=== PATIENT | female | born 1985 | race Two or more races ===

== ENCOUNTER 2017-04-16 16:48 | Emergency (ER) | payer MEDICAID ==
[~2017-04-16] VITALS: Ht 172.7 cm; Wt 128.8 kg
[2017-04-16 17:41] LABS: Basophils # (auto) 0 uL; Basophils % (auto) 0.8 % (0.0-2.0); Eosinophils # (auto) 0.2 uL; Eosinophils % (auto) 3.9 % (0.0-7.0); Hemoglobin 13.3 g/dL (12.2-16.2); Lymphocytes # (auto) 2.6 uL; Lymphocytes % (auto) 41.6 % (10.0-50.0); Mean Corpuscular Hemoglobin 29.5 pg (28.0-32.0); Mean Corpuscular Hgb Conc. 33.3 g/dL (32.0-36.0); Mean Corpuscular Volume 88.6 fL (80.0-100.0); Mean Platelet Volume 8.2 fL (6.9-10.8); Monocytes # (auto) 0.4 uL; Monocytes % (auto) 6.5 % (0.0-12.0); Neutrophils # (auto) 2.9 uL; Neutrophils % (auto) 47.2 % (37.0-80.0); Nucleated Red Blood Cells % 0.1 %; Platelet Count (auto) 259 10^3/uL (140-450); Red Cell Distribution Width 13.1 % (11.8-14.3); White Blood Cell 6.1 10^3/uL (4.4-10.8)
[2017-04-16 18:02] LABS: Albumin 3.7 g/dL (3.4-5.0); Alkaline Phosphatase 81 U/L (45-117); Anion Gap 6 (5-15); Aspartate Aminotransferase 13 U/L (15-37); BUN/Creatinine Ratio 15.3; Bilirubin, Total 0.3 mg/dL (0.2-1.0); Blood Urea Nitrogen 11 mg/dL (7-18); Calcium 8.3 mg/dL (8.5-10.1); Carbon Dioxide 25 mmol/L (21-32); Chloride 109 mmol/L (98-107); GFR African American 122 mL/min; GFR Non-African American 100 mL/min; Glucose 111 mg/dL (74-106); Potassium 4.6 mmol/L (3.5-5.1); Sodium 140 mmol/L (136-145); Total Protein 7.6 g/dL (6.4-8.2)
[2017-04-17 00:52] VITALS: BP 127/85
[2017-04-17] MEDS ORDERED: KETOROLAC TROMETH 60MG/2ML VIAL IM ONE (01:30)
== END 2017-04-17 02:02 | disposition home or self-care (01) ==
LOC: ER 16:53
DX: R59.1 Generalized enlarged lymph nodes (principal); F41.9 Anxiety disorder, unspecified; G51.0 Bell's palsy
CPT/HCPCS: 36415; 70450; 80053; 84484; 85025; 93005; 96372; 99285; J1885

== ENCOUNTER 2017-12-29 04:02 | Observation (INO) | payer SELFPAY ==
[2017-12-29 04:44] LABS: Urine Bacteria FEW /hpf (None Seen); Urine Blood Negative /uL (Negative); Urine Specific Gravity 1.021 (1.001-1.035); Urine WBC 8 /hpf (0 - 5)
[2017-12-29 04:55] LABS: Alcohol, Urine < 3.0 mg/dL (0-5); Amphetamine Screen, Urine NEGATIVE (NEGATIVE); Barbiturate Scree,Urine NEGATIVE (NEGATIVE); Benzodiazephine Screen, Urine NEGATIVE (NEGATIVE); Cannabinoid Screen, Urine NEGATIVE (NEGATIVE); Cocaine Screen, Urine NEGATIVE (NEGATIVE); Opiate Scree,Urine NEGATIVE (NEGATIVE); Phencyclidine Screen, Urine NEGATIVE (NEGATIVE)
== END 2017-12-29 06:10 | disposition home or self-care (01) | DRG 781 ==
LOC: LDRP 04:02
PROVIDERS: ADMIT Specialist; ATTEND Specialist
DX: O26.892 Other specified pregnancy related conditions, second trimester (principal); R10.30 Lower abdominal pain, unspecified; M54.9 Dorsalgia, unspecified; O30.002 Twin pregnancy, unspecified number of placenta and unspecified number of amniotic sacs, second trimester; Z3A.22 22 weeks gestation of pregnancy
CPT/HCPCS: 59025; 76815; 80307; 81001; 81002; G0378

== ENCOUNTER 2018-06-11 22:52 | Emergency (ER) | payer MEDICAID, OTHER ==
[~2018-06-11] VITALS: Ht 170.2 cm; Wt 129.3 kg
[2018-06-11 23:34] LABS: Urine Bacteria FEW /hpf (None Seen); Urine Blood Negative /uL (Negative); Urine Mucus FEW (None Seen); Urine Specific Gravity 1.027 (1.001-1.035); Urine WBC <1 /hpf (0 - 5)
[2018-06-11 23:36] LABS: Basophils # (auto) 0.1 uL; Eosinophils # (auto) 0.2 uL; Eosinophils % (auto) 3.6 % (0.0-7.0); Hematocrit 37.5 % (36.0-46.0); Hemoglobin 12.1 g/dL (12.2-16.2); Lymphocytes # (auto) 2.6 uL; Lymphocytes % (auto) 39.4 % (10.0-50.0); Mean Corpuscular Hemoglobin 25.1 pg (28.0-32.0); Mean Corpuscular Hgb Conc. 32.3 g/dL (32.0-36.0); Mean Corpuscular Volume 77.8 fL (80.0-100.0); Monocytes # (auto) 0.7 uL; Monocytes % (auto) 10.6 % (0.0-12.0); Neutrophils % (auto) 45.4 % (37.0-80.0); Platelet Count (auto) 266 10^3/uL (140-450); Red Blood Cells 4.81 10^6/uL (4.0-5.20); Red Cell Distribution Width 15.9 % (11.8-14.3); White Blood Cell 6.5 10^3/uL (4.4-10.8)
[2018-06-11 23:47] VITALS: BP 148/90
[2018-06-11 23:53] LABS: Albumin 3.5 g/dL (3.4-5.0); Calcium 8.6 mg/dL (8.5-10.1); Potassium 4.3 mmol/L (3.5-5.1)
[2018-06-11 23:56] LABS: BUN/Creatinine Ratio 17.1
[2018-06-11 23:58] LABS: Bilirubin, Total 0.2 mg/dL (0.2-1.0); Total Protein 7.6 g/dL (6.4-8.2)
[2018-06-12] MEDS ORDERED: HYDROcodone-ACET 5/325MG TAB PO ONE
[2018-06-12] MEDS ORDERED: cefTRIAXone 1GM/50ML D5W 50 ML IV ONE (01:00)
== END 2018-06-12 02:41 | disposition home or self-care (01) ==
LOC: EDBD 22:52 → ER 22:58
DX: J32.9 Chronic sinusitis, unspecified (principal)
CPT/HCPCS: 36415; 70450; 80053; 81001; 85025; 96365; 99284; J0696

== ENCOUNTER 2018-09-10 10:05 | Emergency (ER) | payer OTHER ==
[~2018-09-10] VITALS: Ht 170.2 cm; Wt 138.3 kg
[2018-09-10 10:10] VITALS: BP 126/81
== END 2018-09-10 13:03 | disposition home or self-care (01) ==
LOC: ER 10:05
DX: R05 Cough (principal); E66.01 Morbid (severe) obesity due to excess calories; Z68.42 Body mass index [BMI] 45.0-49.9, adult
CPT/HCPCS: 71046

== ENCOUNTER 2019-09-13 19:05 | Emergency (ER) | payer MEDICAID ==
[~2019-09-13] VITALS: Ht 170.2 cm; Wt 138.3 kg
[~2019-09-13 19:05] MED LIST: CALC600T10 PO; MULT-574 PO
[2019-09-13 21:24] LABS: Basophils # (auto) 0 10 ^3/uL (0-0.2); Basophils % (auto) 0.6 % (0.0-2.0); Eosinophils # (auto) 0.2 10 ^3/uL (0-0.8); Eosinophils % (auto) 2.4 % (0.0-7.0); Hematocrit 39.3 % (36.0-46.0); Hemoglobin 13.1 g/dL (12.2-16.2); Lymphocytes # (auto) 2.6 10 ^3/uL (0.4-5.4); Lymphocytes % (auto) 32.3 % (10.0-50.0); Mean Corpuscular Hemoglobin 28.9 pg (28.0-32.0); Mean Corpuscular Hgb Conc. 33.3 g/dL (32.0-36.0); Mean Corpuscular Volume 86.9 fL (80.0-100.0); Monocytes # (auto) 0.7 10 ^3/uL (0-1.3); Monocytes % (auto) 8.4 % (0.0-12.0); Neutrophils # (auto) 4.5 10 ^3/uL (1.6-8.6); Neutrophils % (auto) 56.3 % (37.0-80.0); Nucleated Red Blood Cells % 0.1 %; Platelet Count (auto) 269 10^3/uL (140-450); Red Blood Cells 4.52 10^6/uL (4.0-5.20); Red Cell Distribution Width 13.7 % (11.8-14.3); White Blood Cell 7.9 10^3/uL (4.4-10.8)
[2019-09-13 21:25] LABS: Alanine Aminotransferase 22 U/L (13-56); Albumin 3.3 g/dL (3.4-5.0); Anion Gap 4 (5-15); Aspartate Aminotransferase 13 U/L (15-37); BUN/Creatinine Ratio 13.8; Blood Urea Nitrogen 12 mg/dL (7-18); Calcium 8.8 mg/dL (8.5-10.1); Carbon Dioxide 26 mmol/L (21-32); Chloride 112 mmol/L (98-107); GFR African American 96 mL/min; GFR Non-African American 79 mL/min; Glucose 84 mg/dL (74-106); Potassium 4.1 mmol/L (3.5-5.1); Sodium 142 mmol/L (136-145)
[2019-09-13 21:30] LABS: Alkaline Phosphatase 66 U/L (45-117); Bilirubin, Total 0.2 mg/dL (0.2-1.0); Total Protein 7.7 g/dL (6.4-8.2)
[2019-09-13 22:37] VITALS: BP 129/96
== END 2019-09-13 22:41 | disposition home or self-care (01) ==
LOC: ER 19:07
DX: R07.89 Other chest pain (principal)
CPT/HCPCS: 36415; 71046; 80053; 84484; 85025; 85379; 93005

== ENCOUNTER 2021-12-26 21:00 | Emergency (ER) | payer MEDICAID ==
[~2021-12-26] VITALS: Ht 170.2 cm; Wt 147.4 kg
[~2021-12-26 21:00] MED LIST changes: -MULT-574 PO; +MULT1TAB34 PO
[2021-12-27 02:02] VITALS: BP 125/81
[2021-12-27] MEDS ORDERED: ACYC1CAP23 PO (02:17)
== END 2021-12-27 02:28 | disposition home or self-care (01) ==
LOC: ER 21:00
DX: R07.89 Other chest pain (principal); R11.2 Nausea with vomiting, unspecified; T38.0X5A Adverse effect of glucocorticoids and synthetic analogues, initial encounter; Z79.899 Other long term (current) drug therapy; Y92.89 Other specified places as the place of occurrence of the external cause
CPT/HCPCS: 93005

== ENCOUNTER 2022-11-19 15:51 | Inpatient (IN) | payer MEDICAID ==
[2022-11-18] MEDS: SODIUM CHLORIDE 0.9% 1,000 ML IV SCH (23:56)
[~2022-11-19] VITALS: Ht 167.6 cm; Wt 159.0 kg
[~2022-11-19 15:51] MED LIST changes: +ACYC1CAP23 PO
[2022-11-19] MEDS ORDERED: SODIUM CHLORIDE 0.9% 1,000 ML IVB ONE (16:15)
[2022-11-19] MEDS ORDERED: MORPHINE SULFATE 4 MG/ML SYR/VIAL IV ONE (16:15)
[2022-11-19] MEDS ORDERED: PANTOPRAZOLE 40 MG/10 ML VIAL INJ IV ONE (16:15)
[2022-11-19] MEDS ORDERED: ONDANSETRON HCL 4 MG/2 ML VIAL IV ONE (16:15)
[2022-11-19 16:37] LABS: Basophils # (auto) 0.1 10 ^3/uL (0-0.2); Basophils % (auto) 0.5 % (0.0-2.0); Eosinophils # (auto) 0.2 10 ^3/uL (0-0.8); Eosinophils % (auto) 2.2 % (0.0-7.0); Hematocrit 41.1 % (36.0-46.0); Hemoglobin 13.5 g/dL (12.2-16.2); Lymphocytes # (auto) 2.7 10 ^3/uL (0.4-5.4); Lymphocytes % (auto) 28.2 % (10.0-50.0); Mean Corpuscular Hemoglobin 28.4 pg (28.0-32.0); Mean Corpuscular Hgb Conc. 32.8 g/dL (32.0-36.0); Mean Corpuscular Volume 86.4 fL (80.0-100.0); Monocytes # (auto) 0.7 10 ^3/uL (0-1.3); Monocytes % (auto) 7.1 % (0.0-12.0); Neutrophils # (auto) 5.8 10 ^3/uL (1.6-8.6); Nucleated Red Blood Cells % 0.4 %; Red Blood Cells 4.75 10^6/uL (4.0-5.20); Red Cell Distribution Width 13.4 % (11.8-14.3); White Blood Cell 9.4 10^3/uL (4.4-10.8)
[2022-11-19 16:55] LABS: Albumin 3.7 g/dL (3.4-5.0); Calcium 8.7 mg/dL (8.5-10.1); INR 0.93 (0.9-1.15); Partial Thromboplastin Time 24.4 sec (24.6-33.4); Potassium 4.2 mmol/L (3.5-5.1)
[2022-11-19 16:58] LABS: BUN/Creatinine Ratio 11.8 (10.0-20.0); Bilirubin, Total 0.3 mg/dL (0.2-1.0); Total Protein 7.7 g/dL (6.4-8.2)
[2022-11-19] MEDS ORDERED: DOCUSATE SOD 100 MG CAP PO PRN (19:15)
[2022-11-19 21:41] LABS: Urine Bacteria None Seen /hpf (None Seen)
[2022-11-19 21:58] LABS: Hematocrit 38.7 % (36.0-46.0); Hemoglobin 12.7 g/dL (12.2-16.2)
[2022-11-19] MEDS: PANTOPRAZOLE 40 MG/10 ML VIAL INJ IV SCH (22:00)
[2022-11-19 22:03] LABS: Urine Blood Negative /uL (Negative)
[2022-11-19 22:04] LABS: Urine Amorphous Sediment Few /hpf
[2022-11-19 22:05] LABS: Urine Mucus FEW (None Seen)
[2022-11-19 23:58] VITALS: BP 124/74
[2022-11-20] VITALS (7 sets, daily range): BP systolic 108–135; BP diastolic 61–94
[2022-11-20] MEDS: MORPHINE SULFATE INJ 2 MG/ml SYRG IV PRN ×4 (00:25→20:25)
[2022-11-20] MEDS: ONDANSETRON HCL 4 MG/2 ML VIAL IV PRN ×3 (00:25→20:26)
[2022-11-20] MEDS: SODIUM CHLORIDE 0.9% 1,000 ML IV SCH ×3 (03:35→20:56)
[2022-11-20 06:00] LABS: Basophils # (auto) 0 10 ^3/uL (0-0.2); Basophils % (auto) 0.4 % (0.0-2.0); Eosinophils # (auto) 0.1 10 ^3/uL (0-0.8); Eosinophils % (auto) 2.4 % (0.0-7.0); Hematocrit 36.1 % (36.0-46.0); Hemoglobin 12.2 g/dL (12.2-16.2); Lymphocytes # (auto) 2.2 10 ^3/uL (0.4-5.4); Lymphocytes % (auto) 37.5 % (10.0-50.0); Mean Corpuscular Hemoglobin 29.2 pg (28.0-32.0); Mean Corpuscular Hgb Conc. 33.7 g/dL (32.0-36.0); Mean Corpuscular Volume 86.9 fL (80.0-100.0); Monocytes # (auto) 0.5 10 ^3/uL (0-1.3); Monocytes % (auto) 7.6 % (0.0-12.0); Neutrophils # (auto) 3.1 10 ^3/uL (1.6-8.6); Neutrophils % (auto) 52.1 % (37.0-80.0); Nucleated Red Blood Cells % 0.1 %; Red Blood Cells 4.15 10^6/uL (4.0-5.20); Red Cell Distribution Width 13.5 % (11.8-14.3)
[2022-11-20 06:16] LABS: Calcium 7.8 mg/dL (8.5-10.1); Potassium 3.8 mmol/L (3.5-5.1)
[2022-11-20 06:22] LABS: Albumin 3.1 g/dL (3.4-5.0); BUN/Creatinine Ratio 11.5 (10.0-20.0); Bilirubin, Total 0.6 mg/dL (0.2-1.0); Total Protein 6.2 g/dL (6.4-8.2)
[2022-11-20] MEDS: cefTRIAXone 1GM/50ML D5W 50 ML IV SCH (10:23)
[2022-11-20] MEDS: PANTOPRAZOLE 40 MG/10 ML VIAL INJ IV SCH ×2 (10:24→21:40)
[2022-11-20 10:46] LABS: Hematocrit 36.9 % (36.0-46.0); Hemoglobin 12.3 g/dL (12.2-16.2)
[2022-11-20 22:15] LABS: Hematocrit 37.8 % (36.0-46.0); Hemoglobin 12.5 g/dL (12.2-16.2)
[2022-11-21] MEDS: SODIUM CHLORIDE 0.9% 1,000 ML IV SCH (04:40)
[2022-11-21 05:00] VITALS: BP 114/71
[2022-11-21 05:00] LABS: Basophils # (auto) 0 10 ^3/uL (0-0.2); Basophils % (auto) 0.4 % (0.0-2.0); Eosinophils # (auto) 0.2 10 ^3/uL (0-0.8); Eosinophils % (auto) 4.1 % (0.0-7.0); Hematocrit 36.6 % (36.0-46.0); Hemoglobin 12.3 g/dL (12.2-16.2); Lymphocytes # (auto) 1.7 10 ^3/uL (0.4-5.4); Lymphocytes % (auto) 32.6 % (10.0-50.0); Mean Corpuscular Hgb Conc. 33.6 g/dL (32.0-36.0); Mean Corpuscular Volume 86.4 fL (80.0-100.0); Monocytes # (auto) 0.4 10 ^3/uL (0-1.3); Monocytes % (auto) 7.3 % (0.0-12.0); Neutrophils % (auto) 55.6 % (37.0-80.0); Nucleated Red Blood Cells % 0.1 %; Red Blood Cells 4.23 10^6/uL (4.0-5.20); Red Cell Distribution Width 13.6 % (11.8-14.3); White Blood Cell 5.3 10^3/uL (4.4-10.8)
[2022-11-21 05:22] LABS: Calcium 7.8 mg/dL (8.5-10.1); Potassium 3.7 mmol/L (3.5-5.1)
[2022-11-21 05:26] LABS: BUN/Creatinine Ratio 12.2 (10.0-20.0); Bilirubin, Total 0.5 mg/dL (0.2-1.0); Total Protein 6.4 g/dL (6.4-8.2)
[2022-11-21 08:58] VITALS: BP_SYST 122; BP_SYST 137; BP_DIAS 73; BP_DIAS 74
[2022-11-21] MEDS: cefTRIAXone 1GM/50ML D5W 50 ML IV SCH (09:00)
[2022-11-21] MEDS: PANTOPRAZOLE 40 MG/10 ML VIAL INJ IV SCH (10:00)
== END 2022-11-21 10:40 | disposition left against medical advice (07) ==
LOC: ER 15:51 → OVERFLOW 19:10 → WEST WING 23:33
PROVIDERS: ADMIT Nurse Practitioner Family; ATTEND Nurse Practitioner Family
DX: K80.20 Calculus of gallbladder without cholecystitis without obstruction (principal); K76.0 Fatty (change of) liver, not elsewhere classified; K92.2 Gastrointestinal hemorrhage, unspecified; R16.0 Hepatomegaly, not elsewhere classified; Z68.43 Body mass index [BMI] 50.0-59.9, adult; Z53.29 Procedure and treatment not carried out because of patient's decision for other reasons; E66.01 Morbid (severe) obesity due to excess calories; K20.90 Esophagitis, unspecified without bleeding; Z79.899 Other long term (current) drug therapy; Z80.3 Family history of malignant neoplasm of breast; Z82.1 Family history of blindness and visual loss; Z82.49 Family history of ischemic heart disease and other diseases of the circulatory system
CPT/HCPCS: 36415; 74176; 76705; 80053; 81001; 81025; 82150; 83690; 85014; 85018; 85025; 85610; 85730; 86850; 86900; 86901; 96361; 96374; 96375; C9113; G0378; J0696; J2405

== ENCOUNTER 2024-12-10 09:59 | Emergency (ER) | payer MEDICAID ==
[~2024-12-10] VITALS: Ht 167.6 cm; Wt 149.1 kg
[~2024-12-10 09:59] MED LIST changes: -ACYC1CAP23 PO; +ACYC200C22 PO
[2024-12-10 10:25] VITALS: BP 100/67; PULSE 78; RESP 17; TEMP 97.8; O2SAT 99
--- NOTE | 2024-12-10 11:26 | ED.PDOC ---
Musculoskeletal HPI Comments A 39 year old female with no past medical history presents to the emergency department with a chief complaint of LT great toe pain onset today (12/10/24). Patient states she was walking to the restroom this morning when she tripped, hit her LT great toe, cracked toenail. Patient went to see PCP this morning, was sent to ED for XR. No other symptoms or modifying factors present at this time. Still able to bear weight Denies previous surgeries to the toe Denies redness or swelling around the toe Denies fever chills night sweats nausea vomiting Chief Complaint: Lower Extremity Time Seen by MD: 11:15 Primary Care Provider: TRUNG Reviewed Notes: Nurses Notes, Medications, Allergies Allergies: Coded Allergies: NO KNOWN ALLERGIES (Unverified , 03/29/15) Home Meds Active Scripts Naproxen (Naproxen) 500 Mg Tab, 500 MG PO BIDPC PRN for 10 Days, #20 TAB 0 Refills Prov:LUIS TALAVERA COUNTER PROFESSIONAL 12/10/24 Acyclovir (Acyclovir) 200 Mg Cap, 400 MG PO TID for 10 Days, #60 TAB Prov:VIVIAN RUIZ DO 12/27/21 Reported Medications Calcium Carbonate-Vitamin D (Calcium + D) 600 Mg Tab, 600 MG PO DAILY, TAB 12/01/18 Multiple Vitamins W/ Minerals (Centrum Silver Ultra Wome) Silver Tab, 1 TAB PO DAILY, TAB 12/01/18 Information Source: Patient Mode of Arrival: Ambulatory Location: Left Extremity Location: Great Toe Timing: Hours Prehospital treatment: None Severity: Moderate Able to Move Extremity: Yes Bear Weight: Limited Pain: Moderate Mechanism: Blunt Trauma Circumstances: Tripped Onset of Symptoms: After Trauma Symptoms: Pain DVT Risk Factors: NONE Last Tetanus: UTD Associated signs and symptoms: Other Past Medical History PAST MEDICAL HISTORY: Gallstones Surgical History: COMMUNITY WORKER History: No Pertinent COMMUNITY WORKER History Family History Family History: Family hx of Cancer Social History Smoker: Non-Smoker Alcohol: Occasionally Drugs: Denies Drug Use Lives In: Home All Other Systems: Reviewed and Negative (as per HPI) Physical Exam General Appearance: No Apparent Distress, Normal HEENT: Normal ENT Inspection, Pharynx Normal, TMs Normal Neck: Full Range of Motion, Non-Tender, Normal, Normal Inspection Respiratory: Chest Non-Tender, Lungs Clear, No Accessory Muscle Use, No Respiratory Distress, Normal Breath Sounds Cardiovascular: No Murmur, No Gallop, Regular Rate/Rhythm Breast Exam: Deferred Gastrointestinal: No Organomegaly, Non Tender, No Pulsatile Mass, Normal Bowel Sounds, Soft Genitalia: Deferred Pelvic: Deferred Rectal: Deferred Extremities: No calf tenderness, Normal capillary refill, No pedal edema Musculoskeletal : Location: Left Extremity Location: Great Toe Apperance: Normal Neurologic: Alert, rn long term care II-XII nml as Tested, No Motor Deficits, Normal Affect, Normal Mood, No Sensory Deficits Cerebellar Function: Normal Reflexes: Normal Skin: Dry, Normal Color, Warm Lymphatic: No Adenopathy Was a procedure done? Was a procedure done?: No Differential Diagnosis EXT Differential Diagnosis: Fracture, Sprain, Dislocation X-Ray, Labs, Meds, VS Vital Signs Date Time Temp Pulse Resp B/P (MAP) Pulse Ox O2 Delivery O2 Flow Rate FiO2 12/10/24 10:25 78 17 99 Room Air 12/10/24 10:25 97.8 78 17 100/67 (78) 99 97.8 12/10/24 10:22 97.9 78 17 100/67 (78) 99 97.9 DIAGNOSTIC IMAGING Diagnostic Imaging Report : [id number] Signed PATIENT: JED ORDOÑEZ ACCT: [id number] UNIT: [id number] : 1985 LOC: ER ROOM / BED: / AGE / SEX: 39 / F ADM STATUS: REG ER SERVICE 1121 ORDERING PHYSICIAN: LUIS TALAVERA NP PROCEDURE(s): LFOOT - L FOOT 3 VIEW XRAY REASON: r/o fracture to the great toe ORDER NUMBER(s): [id number], ACCESSION NUMBER(s): [id number] CLINICAL INDICATION: Trauma; r/o fracture to the great toe TECHNIQUE: 3 radiographic views of the left foot were obtained. Comparison: None FINDINGS/IMPRESSION: There is no evidence of acute fracture or dislocation. The visualized joint space is well maintained. The alignment is anatomical. There is no radiopaque foreign body. ATED BY: FINESSE LAY MD DICTATED DATE/TIME: 12/10/24 1217 SIGNED BY: FINESSE LAY MD SIGNED DATE/TIME: 12/10/24 1217 CC: X-Ray, Labs, Meds, VS Comment A 39 year old female with no past medical history presents to the emergency department with a chief complaint of LT great toe pain onset today (12/10/24). Patient arrives alert and oriented, ABC's intact, afebrile, vital signs stable, saturating well in room air Diagnostic imaging ordered by me and results interpreted by radiology : XY L FOOT 3 VIEW On reevaluation, patient had symptomatic improvement. Patient is stable for discharge at this time. External notes reviewed. Test results and diagnostic imaging interpreted. All diagnostic findings, discharge care, education and instructions provided Follow-up with PCP in 2 to 3 days Patient verbalized understanding and agreed to treatment plan Vital signs stable, afebrile, no acute distress noted Patient ambulatory with strong steady gait Advised to return precautions for any new or worsening symptoms, return to ER immediately for re-evaluation Patient is aware that the purpose of this visit was for an acute medical emergency requiring emergent stabilization. Chronic conditions, including malignancies have not been ruled out. Patient is instructed to follow up with PCP as directed and discharge instructions for continued care and workup. If unable to arrange follow-up, patient is to return to the emergency department for reassessment. Patient (parent or legal guardian if applicable) was given verbal and written discharge instructions and acknowledges understanding. Additional MDM Review of External, Non-ED records: External records reviewed. Discussion with independent historian (EMS, family) history obtained from the patient/parents (if applicable) at bedside Chronic conditions affecting care: None Social determinants of health affecting care: occasional ETOH Consideration of admission (observation or admission): I considered escalation of care to admission for this patient, however given the reassuring workup, the patient is safe for outpatient management. Time of 1ST Reevaluation: 11:45 Reevaluation 1ST: Improved Patient Education/Counseling: Diagnosis, Treatment, Need For Follow Up Family Education/Counseling: No Family Present Departure 1 Departure Time of Disposition: 12:35 Impression: Primary Impression: Nail avulsion of toe Qualified Codes: S91.209A - Unspecified open wound of unspecified toe(s) with damage to nail, initial encounter Disposition: HOME / SELF CARE / HOMELESS Condition: Stable e-Prescriptions Naproxen (Naproxen) 500 Mg Tab 500 MG PO BIDPC PRN for 10 Days, #20 TAB 0 Refills Prov: LUIS TALAVERA NP 12/10/24 Critical Care Note Critical Care Time?: No Stability Stability form required: No Heart Score Heart Score: Heart Score Response (Comments) Value History N/A 0 EKG N/A 0 Age N/A 0 Risk Factors N/A 0 Troponin N/A 0 Total 0 I personally scribed for LUIS TALAVERA NP ([email or web address]) on 12/10/24 at 11:26. Electronically submitted by Sonal Pollard ([email or web address]). I personally scribed for LUIS TALAVERA NP ([email or web address]) on 12/10/24 at 11:36. Electronically submitted by Sonal Pollard ([email or web address]). I personally scribed for LUIS TALAVERA NP ([email or web address]) on 12/10/24 at 12:25. Electronically submitted by Sonal Pollard ([email or web address]). LUIS TALAVERA NP Dec 10, 2024 11:26
--- NOTE | 2024-12-10 12:19 | DVH ---
CLINICAL INDICATION: Trauma; r/o fracture to the great toe TECHNIQUE: 3 radiographic views of the left foot were obtained. Comparison: None FINDINGS/IMPRESSION: There is no evidence of acute fracture or dislocation. The visualized joint space is well maintained. The alignment is anatomical. There is no radiopaque foreign body.
[2024-12-10] MEDS ORDERED: NAPR-746 PO (12:37)
== END 2024-12-10 13:10 | disposition home or self-care (01) ==
LOC: ER 09:59
DX: S91.202A Unspecified open wound of left great toe with damage to nail, initial encounter (principal); W01.0XXA Fall on same level from slipping, tripping and stumbling without subsequent striking against object, initial encounter; Y93.01 Activity, walking, marching and hiking; Y92.89 Other specified places as the place of occurrence of the external cause; Y99.8 Other external cause status
CPT/HCPCS: 73630

== ENCOUNTER 2025-05-09 20:00 | Emergency (ER) | payer MEDICAID ==
[~2025-05-09] VITALS: Ht 170.2 cm; Wt 148.6 kg
[~2025-05-09 20:00] MED LIST changes: +NAPR-746 PO
[2025-05-09 21:02] LABS: Hematocrit 38.8 % (36.0-46.0); Hemoglobin 12.9 g/dL (12.2-16.2); Mean Corpuscular Hemoglobin 29.2 pg (28.0-32.0); Mean Corpuscular Volume 87.4 fL (80.0-100.0); Nucleated Red Blood Cells % 0.0 %
[2025-05-09 21:08] LABS: Alanine Aminotransferase 10 U/L (7-40); Albumin 4.4 g/dL (3.2-4.8); Alkaline Phosphatase 66 U/L (46-116); Anion Gap 9 (5-15); BUN/Creatinine Ratio 13.3 (10.0-20.0); Bilirubin, Total 0.3 mg/dL (0.2-1.0); Blood Urea Nitrogen 11 mg/dL (9-23); Calcium 9.2 mg/dL (8.7-10.4); Carbon Dioxide 28 mmol/L (20-31); Lipase 51 U/L (12-53); Potassium 4.2 mmol/L (3.5-5.1); Sodium 144 mmol/L (136-145); Total Protein 7.2 g/dL (5.7-8.2)
[2025-05-09 21:22] LABS: Chloride 107 mmol/L (98-107); Glucose 117 mg/dL (74-106)
--- NOTE | 2025-05-09 21:32 | DVH ---
Exam: CT CT AB PEL WO CON-NO ORAL OR IV History: upper abd pain Comparison Study: CT CT AB PEL WO CON-NO ORAL OR IV on DOS: 11/20/22 TECHNIQUE: Multidetector CT of the abdomen and pelvis without IV contrast. Axial, coronal and sagitta l multiplanar reformats were obtained from the axial data set by the technologist. Radiation Dose Information: CT Dose: CTDI volume is 27.62 mGy. Dose-length product is 1573.89 mGy*cm FINDINGS: The lung bases are clear. Partially visualized heart is unremarkable. Mild hepatomegaly. Otherwise, liver, spleen, pancreas and adrenal glands are unremarkable. Moderate distention of the gallbladder sludge and multiple gallstones. 3.1 x 3.9 cm large calculus over the p roximal gallbladder. No evidence of gallbladder wall thickening or pericholecystic edema. Kidneys, ureters and urinary bladder are unremarkable. Uterus and adnexa are unremarkable. Stomach is unremarkable. Small bowel loops are unremarkable. Appendix is unremarkable. Small to mode rate amount of fecal material within the colon. No evidence of intraperitoneal free air or free fluid. No evidence of aortic aneurysm. No significant lymphadenopathy. Tiny fat containing umbilical hernia. Mild nonspecific midline lower back Subcutaneous fat edema. No evidence of acute osseous abnormalities. Focus of air within the anterior spinal canal at the level o f L5 which is most likely from the vacuum disc phenomenon. Posterior disc osteophyte complex causing severe spinal canal stenosis at L4-L5. IMPRESSION: Sludge and gallstones within the moderately distended gallbladder with no CT evidence of acute cholec ystitis. Right upper quadrant ultrasound may be considered for further evaluation. Severe spinal canal stenosis at L4-L5.
[2025-05-09 23:15] LABS: Urine Protein, UAD Negative (Negative)
[2025-05-10] MEDS: LIDOCAINE VISCOUS 2% 15ML UD PO ONE (00:46)
[2025-05-10] MEDS: PANTOPRAZOLE 40 MG TAB PO ONE (00:46)
[2025-05-10] MEDS: SUCRALFATE 1 GM TAB PO ONE (00:46)
[2025-05-10 01:08] VITALS: BP 110/74; TEMP 97.6
[2025-05-10 01:10] VITALS: PULSE 72; RESP 12; O2SAT 96
--- NOTE | 2025-05-10 11:26 | ED.PDOC ---
GI ASSESSMENT HPI Comments 40-year-old female who presents to the ED for chief complaint of abdominal pain. Patient states that she has been having epigastric abdominal pain for the past four days. Patient states that she went to PCP few days ago and states she was told she has acid reflux and prescription of omeprazole an associated and Tylenol for pain. Patient states her symptoms worsened today and states she went to urgent care. Patient states that she had blood work done but states she did not receive her results. Patient states that she continued to have pain and was referred to the ED for evaluation. Patient in the ED states she had having l left upper quadrant pain. constant with the associated exacerbating factor of pain after eating and no alleviating factors. Patient has a associated nausea but otherwise denies vomiting diarrhea fever cough chills or any other symptoms. Patient otherwise states that she has been having loss of appetite due to the pain. Patient in the ED has not noted blood pressure 152/104 with otherwise stable vitals. Patient otherwise denies any other symptoms. Past Medical history: Denies Past Surgical history: Medications: Omeprazole, Tylenol Social history: denies EOTH, denies tobacco use, denies drug use Allergies: NKDA HPI: Poor Historian. Abdominal pain no vomiting no diarrhea. Patient has been taking omeprazole and Tylenol. Past Medical History: Past Surgical History: REVIEW OF SYSTEMS: CONSTITUTIONAL: Denies acute: fever, diaphoresis, chills, generalized weakness. HEAD: Denies acute: headache, photophobia Eyes: Denies acute: Double vision, vision loss, eye pain, eye discharge. EARS: Denies acute: tinnitus, hearing loss, ear discharge, ear pain, THROAT: Denies acute: sore throat, swelling, difficulty swallowing , pain with swallowing, change in voice. NECK: Denies acute: neck pain, neck swelling, stiff neck. HEART: Denies acute : chest pain, palpitations, LUNGS: Denies acute: SOB, wheezing, cough, hemoptysis ABDOMEN: Denies acute: Vomiting, diarrhea, melena , hematemesis, hematochezia SKIN: Denies acute: rash, redness, lesions, itchiness. EXTREMITIES: Denies acute: calf pain, numbness, tingling, weakness, denies pain in extremity. Denies acute: Low back pain. Neuro: Denies acute: focal neurological deficit, motor or sensory focal neurological d eficit, tremors, seizure like activity, confusion, dizziness, change in mental status, loss of bowel or bladder function, cauda equina like symptoms. : Denies acute: dysuria, hematuria, flank pain, increase in urinary frequency. PSYCH: Denies acute: hallucination, suicidal ideation, homicidal ideation. FEMALE: Denies acute: abnormal vaginal bleeding, foul odor, unusual discharge. PHYSICAL EXAM: General: ---[id number]-----acute distress, awake and alert. Head: normocephalic, atraumatic. Neck: supple, trachea is midline, no swelling. Throat: Normal phonation. Eyes:, no erythema, no purulent discharge, no proptosis, no icterus. Heart: regular rate, regular rhythm, no significant murmur appreciated. Lungs: no apparent respiratory distress, Able to speak in full sentences. No wheezing, no rhonchi, no crackles. No stridors Clear to auscultation bilaterally. Abdomen: Epigastric and left upper quadrant tender to palpation, non distended, soft, no guarding, no rebound, + bowel sounds. Morbidly obese Specifically no right upper quadrant tenderness to palpation. No lower quadrant tenderness to palpation. Neuro: Awake, Alert, oriented to name, self, situation, follows commands GCS=15. Speech is normal. Skin: no petechia, no purpura, no cyanosis, non-pale, not jaundice. Lower extremities: --no - Pitting edema no deformity, no focal swelling, no calf TTP. Makes eye contact. moves all four extremities. Face: no apparent facial droop. Ambulating in the ED independently. ED COURSE: DISCLAIMER: This medical document was created using an electronic medical record system with voice recognition software and computerized dictation system. Although this document has been carefully reviewed, there might still be some phonetic and typographical errors. Occasional wrong-word or "sound-alike" substitutions may have occurred due to the inherent limitations of voice recognition software. These areas are purely typographical due to imperfections of the software programs and do not reflect any compromise in the patient's medical care. Please read the chart carefully and recognize, using context, where these substitutions have occurred. Chief Complaint: Abdominal Pain Time Seen by MD: 21:20 Primary Care Provider: TRUNG Reviewed Notes: Medications, Allergies Allergies: Coded Allergies: NO KNOWN ALLERGIES (Unverified , 03/29/15) Home Meds Active Scripts Naproxen (Naproxen) 500 Mg Tab, 500 MG PO BIDPC PRN for 10 Days, #20 TAB 0 Refills Prov:ILANLUIS SMITH Amanda CHILD NUTRITION MANAGER 12/10/24 Acyclovir (Acyclovir) 200 Mg Cap, 400 MG PO TID for 10 Days, #60 TAB Prov:SARAVIVIAN Braeden DO 12/27/21 Reported Medications Calcium Carbonate-Vitamin D (Calcium + D) 600 Mg Tab, 600 MG PO DAILY, TAB 12/01/18 Multiple Vitamins W/ Minerals (Centrum Silver Ultra Wome) Silver Tab, 1 TAB PO DAILY, TAB 12/01/18 Information Source: Patient Mode of Arrival: Ambulatory Past Medical History PAST MEDICAL HISTORY: Gallstones Surgical History: TIMBER MANAGEMENT TECHNICIAN History: No Pertinent TIMBER MANAGEMENT TECHNICIAN History Family History Family History: Family hx of Cancer Social History Smoker: Non-Smoker Alcohol: Occasionally Drugs: Denies Drug Use Lives In: Home Was a procedure done? Was a procedure done?: No GI differential Dx Differential Diagnosis: Other (DDX include Diverticulitis, colitis, gastroenteritis, acute abdomen, SBO, enteritis, constipation, volvulus, appendicitis, Gallbladder disease, choledocolithiasis, ascending cholangitis, pancreatitis, intraAbdominal mass/neoplasm, hepatitis, UTI, pylonephritis, kidney stone, aneurysm, dissection, Inflammatory bowel disease, gastroparesis, ischemic bowel,,,,,,Food poisoning, bacterial/parasitic/viral etiology, trauma, diabetes DKA,ovarian torsion, ovarian cyst/mass, tubo-ovarian abscess, , ectopic , PID, STD.) X-Ray, Labs, Meds, VS Vital Signs Date Time Temp Pulse Resp B/P (MAP) Pulse Ox O2 Delivery O2 Flow Rate FiO2 05/10/25 01:10 72 12 96 Room Air* 0 21 05/10/25 01:08 97.6 82 12 110/74 (86) 98 97.6 05/09/25 20:01 98.4 83 20 152/104 100 98.4 Lab Test 05/09/25 21:10 05/09/25 20:36 Range/Units Urine Color Light-yellow Yellow Urine Clarity Clear Clear Urine pH 6.0 5.0-9.0 Urine Specific Hines 1.031 1.001-1.035 Urine Protein Negative Negative Urine Ketones Negative Negative Urine Blood Negative Negative /uL Urine Nitrite Negative Negative Urine Bilirubin Negative Negative Urine Urobilinogen Normal Negative mg/dL Urine Leukocyte Esterase Negative Negative /uL Urine RBC None seen 0 - 4 /hpf Urine Microscopic WBC 1 0-5 /HPF Urine Squamous Epithelial Cells Few <5 /hpf Urine Bacteria None seen None Seen /hpf Urine Glucose Normal Normal mg/dL White Blood Count 6.8 4.4-10.8 10^3/uL Red Blood Count 4.44 4.0-5.20 10^6/uL Hemoglobin 12.9 12.2-16.2 g/dL Hematocrit 38.8 36.0-46.0 % Mean Corpuscular Volume 87.4 80.0-100.0 fL Mean Corpuscular Hemoglobin 29.2 28.0-32.0 pg Mean Corpuscular Hemoglobin Concent 33.4 32.0-36.0 g/dL Red Cell Distribution Width 13.1 11.8-14.3 % Platelet Count 277 140-450 10^3/uL Mean Platelet Volume 8.0 6.9-10.8 fL Neutrophils (%) (Auto) 55.7 37.0-80.0 % Lymphocytes (%) (Auto) 32.9 10.0-50.0 % Monocytes (%) (Auto) 8.1 0.0-12.0 % Eosinophils (%) (Auto) 2.9 0.0-7.0 % Basophils (%) (Auto) 0.4 0.0-2.0 % Neutrophils # (Auto) 3.8 1.6-8.6 10 ^3/uL Lymphocytes # (Auto) 2.2 0.4-5.4 10 ^3/uL Monocytes # (Auto) 0.5 0-1.3 10 ^3/uL Eosinophils # (Auto) 0.2 0-0.8 10 ^3/uL Basophils # (Auto) 0 0-0.2 10 ^3/uL Nucleated Red Blood Cells 0.0 % Sodium Level 144 136-145 mmol/L Potassium Level 4.2 3.5-5.1 mmol/L Chloride Level 107 98-107 mmol/L Carbon Dioxide Level 28 20-31 mmol/L Anion Gap 9 5-15 Blood Urea Nitrogen 11 9-23 mg/dL Creatinine 0.83 0.550-1.02 mg/dL Glomerular Filtration Rate Calc 91 >90 mL/min BUN/Creatinine Ratio 13.3 10.0-20.0 Serum Glucose 117 H 74-106 mg/dL Lactic Acid Level 1.0 0.4-2.0 mmol/L Calcium Level 9.2 8.7-10.4 mg/dL Total Bilirubin 0.3 0.2-1.0 mg/dL Aspartate Amino Transferase (AST) 11 L 13-40 U/L Alanine Aminotransferase (ALT) 10 7-40 U/L Alkaline Phosphatase 66 46-116 U/L Total Protein 7.2 5.7-8.2 g/dL Albumin 4.4 3.2-4.8 g/dL Lipase 51 12-53 U/L [place] [address] Ph: [phone] DIAGNOSTIC IMAGING Diagnostic Imaging Report : [id number] Signed PATIENT: JED ORDOÑEZ ACCT: [id number] UNIT: [id number] : 1985 LOC: ER ROOM / BED: / AGE / SEX: 40 / F ADM STATUS: REG ER SERVICE 29 ORDERING PHYSICIAN: ALIA PINA DO PROCEDURE(s): ABPL - CT AB PEL WO CON-NO ORAL OR IV REASON: upper abd pain ORDER NUMBER(s): [id number], ACCESSION NUMBER(s): [id number] Exam: CT CT AB PEL WO CON-NO ORAL OR IV History: upper abd pain Comparison Study: CT CT AB PEL WO CON-NO ORAL OR IV on DOS: 11/20/22 TECHNIQUE: Multidetector CT of the abdomen and pelvis without IV contrast. Axial, coronal and sagittal multiplanar reformats were obtained from the axial data set by the technologist. Radiation Dose Information: CT Dose: CTDI volume is 27.62 mGy. Dose-length product is 1573.89 mGy*cm FINDINGS: The lung bases are clear. Partially visualized heart is unremarkable. Mild hepatomegaly. Otherwise, liver, spleen, pancreas and adrenal glands are unremarkable. Moderate distention of the gallbladder sludge and multiple gall stones. 3.1 x 3.9 cm large calculus over the proximal gallbladder. No evidence of gallbladder wall thickening or pericholecystic edema. Kidneys, ureters and urinary bladder are unremarkable. Uterus and adnexa are unremarkable. Stomach is unremarkable. Small bowel loops are unremarkable. Appendix is unremarkable. Small to moderate amount of fecal material within the colon. No evidence of intraperitoneal free air or free fluid. No evidence of aortic aneurysm. No significant lymphadenopathy. Tiny fat containing umbilical hernia. Mild nonspecific midline lower back Subcutaneous fat edema. No evidence of acute osseous abnormalities. Focus of air within the anterior spinal canal at the level of L5 which is most likely from the vacuum disc phenomenon. Posterior disc osteophyte complex causing severe spinal canal stenosis at L4-L5. IMPRESSION: Sludge and gallstones within the moderately distended gallbladder with no CT evidence of acute cholecystitis. Right upper quadrant ultrasound may be considered for further evaluation. Severe spinal canal stenosis at L4-L5. ATED BY: KANWAL MUSTAFA DO DICTATED DATE/TIME: 05/09/252129 SIGNED BY: KANWAL MUSTAFA DO SIGNED DATE/TIME: 05/09/252129 CC: Time of 1ST Reevaluation: 22:00 Reevaluation 1ST: Unchanged Patient Education/Counseling: Diagnosis, Treatment Family Education/Counseling: No Family Present Comments MDM: patient presented with the above HPI.---abdominal pain---workup was initiated. patient was found with the above mentioned diagnosis. the following medications were ordered: please refer to order lists of meds and tests obtained by myself Dr. Pina. Patient ED course and VS have been stabilized. Patient has been reassessed in the ED and remained in a stable condition. Pertinent incidental findings were discussed with the patient and/or family. Patient/family voices understanding and is agreeable with plan. Patient has been observed in the ED adequate length of time to insure improvement/stability. Escalation of care considered: Consideration of escalation to observation or admission Patient was DISCHARGED home in a stable condition. All the reports of any imaging studies that were ordered by myself were reviewed by myself. SEPSIS Sepsis Screen Date sepsis recognized/suspect: May 09, 2025 Time Sepsis recognized/suspect: 2004 Recent Procedure: No On Antibiotic Therapy: No Respiratory Rate >20: No Heart Rate >90: No Temp<36 C (96.8 F) or >38.3 C: No SBP <90 or MAP <65 mmHG: No New Acute Mental Status Change: No Is the patient on CPAP, BIPAP,: No Physician Orders Claims Correspondence Clerk (05/09/25 ) Ct Ab Pel Wo Con-No Oral Or Iv (05/09/25 20:30) Vital Signs Date Time Temp Pulse Resp B/P (MAP) Pulse Ox O2 Delivery O2 Flow Rate FiO2 05/10/25 01:10 72 12 96 Room Air* 0 21 05/10/25 01:08 97.6 82 12 110/74 (86) 98 97.6 05/09/25 20:01 98.4 83 20 152/104 100 98.4 Laboratory Tests Test 05/09/25 20:36 Lactic Acid Level 1.0 mmol/L (0.4-2.0) White Blood Count 6.8 10^3/uL (4.4-10.8) Departure 1 Departure Time of Disposition: 23:45 Impression: Primary Impression: Cholelithiasis Additional Impressions: Spinal stenosis at L4-L5 level Left upper quadrant pain Disposition: 01 HOME / SELF CARE / HOMELESS Condition: Stable Additional Instructions: Additional instructions: Please read all instructions provided in this packet carefully. You MUST follow-up with your primary care/family doctor in 1 to 2 days. If you are unable to see your primary care/family doctor, please return to our emergency room for re-assessment and re-evaluation in 1 to 2 days. Return to the emergency room here in our facility or to the nearest ER [facility] if your symptoms change or worsen. CONSULTATIONS: you MUST Follow-up for consultation as soon as possible with: -gastroenterology in 1-2 days. Please call for appointment. You MUST call the consultants office yourself to make an appointment. You may need to arrange that through your insurance and/or your primary/family doctor. If you are unable to see the architecture consultant in 1 to 2 days, you must return to our emergency room (or any other ER of your choice) for re-assessment and re- evaluation. Adequate fluid hydration. Although you have been discharged from the Emergency Department, this does not mean that you have a "clean bill of health". No definitive diagnosis for your symptoms has been made today. It is possible that you are in the process of developing a serious illness. This is why you must return to the ED without fail if any new or worsening symptoms develop. Avoid fatty greasy spicy food. Avoid caffeinated products. Avoid NSAIDs. This is a copy of your radiological report for follow up [address] [address] Ph: [phone] DIAGNOSTIC IMAGING Diagnostic Imaging Report : [id number] Signed PATIENT: JED ORDOÑEZ ACCT: [id number] UNIT: [id number] : 1985 LOC: ER ROOM / BED: / AGE / SEX: 40 / F ADM STATUS: REG ER SERVICE 29 ORDERING PHYSICIAN: ALIA PINA DO PROCEDURE(s): ABPL - CT AB PEL WO CON-NO ORAL OR IV REASON: upper abd pain ORDER NUMBER(s): [id number], ACCESSION NUMBER(s): [id number] Exam: CT CT AB PEL WO CON-NO ORAL OR IV History: upper abd pain Comparison Study: CT CT AB PEL WO CON-NO ORAL OR IV on DOS: 11/20/22 TECHNIQUE: Multidetector CT of the abdomen and pelvis without IV contrast. Axial, coronal and sagittal multiplanar reformats were obtained from the axial data set by the technologist. Radiation Dose Information: CT Dose: CTDI volume is 27.62 mGy. Dose-length product is 1573.89 mGy*cm FINDINGS: The lung bases are clear. Partially visualized heart is unremarkable. Mild hepatomegaly. Otherwise, liver, spleen, pancreas and adrenal glands are unremarkable. Moderate distention of the gallbladder sludge and multiple gallstones. 3.1 x 3.9 cm large calculus over the proximal gallbladder. No evidence of gallbladder wall thickening or pericholecystic edema. Kidneys, ureters and urinary bladder are unremarkable. Uterus and adnexa are unremarkable. Stomach is unremarkable. Small bowel loops are unremarkable. Appendix is unrema rkable. Small to moderate amount of fecal material within the colon. No evidence of intraperitoneal free air or free fluid. No evidence of aortic aneurysm. No significant lymphadenopathy. Tiny fat containing umbilical hernia. Mild nonspecific midline lower back Subcutaneous fat edema. No evidence of acute osseous abnormalities. Focus of air within the anterior spinal canal at the level of L5 which is most likely from the vacuum disc phenomenon. Posterior disc osteophyte complex causing severe spinal canal stenosis at L4-L5. IMPRESSION: Sludge and gallstones within the moderately distended gallbladder with no CT evidence of acute cholecystitis. Right upper quadrant ultrasound may be considered for further evaluation. Severe spinal canal stenosis at L4-L5. ATED BY: KANWAL MUSTAFA DO DICTATED DATE/TIME: 05/09/252129 SIGNED BY: KANWAL MUSTAFA DO SIGNED DATE/TIME: 05/09/252129 CC: Discharged With: Self Critical Care Note Critical Care Time?: No I personally scribed for ALIA PINA DO ([facility]) on 05/09/25 at 21:22. Electronically submitted by Matt Noyola ([email or web address]). I personally scribed for ALIA PINA DO ([email or web address]) on 05/09/25 at 21:59. Electronically submitted by Matt Noyola (ALEXANDRE). I personally scribed for ALIA PINA DO ([email or web address]) on 05/09/25 at 22:03. Electronically submitted by Matt Noyola (ALEXANDRE). ALIA PINA DO May 09, 2025 21:22
== END 2025-05-10 01:13 | disposition home or self-care (01) ==
LOC: ER 20:00
DX: K80.20 Calculus of gallbladder without cholecystitis without obstruction (principal); M48.061 Spinal stenosis, lumbar region without neurogenic claudication; R10.12 Left upper quadrant pain; Z79.899 Other long term (current) drug therapy
CPT/HCPCS: 36415; 74176; 80053; 81001; 83605; 83690; 85025